=== PATIENT | male | born 1940 | race Caucasian/White ===

== ENCOUNTER 2021-02-07 10:34 | Inpatient (IN) | payer OTHER ==
[~2021-02-07] VITALS: Ht 182.9 cm; Wt 111.3 kg
[2021-02-07] MEDS ORDERED: METHADONE 5MG TA5 MG PO (11:31)
[2021-02-07] MEDS ORDERED: PROSCAR5 MG PO (11:32)
[2021-02-07] MEDS ORDERED: FLOMAX 0.4 MG0.4 MG PO (11:33)
[2021-02-07] MEDS ORDERED: OXYCODONE HCL10 MG PO (11:34)
[2021-02-07] MEDS ORDERED: ZOFRAN4 M1 SL (11:34)
[2021-02-07 12:36] LABS: BASOPHIL 1.1 % (0-2); EOSINOPHIL 3.4 % (0-7); HCT 37.4 % (42.0-52.0); HGB 12.4 g/dl (13.2-18.0); LYMPHOCYTE 23.4 % (15-48); MCHC 33.2 g/dL (32.0-36.0); MCV 93.5 fL (78.0-100.0); MONOCYTE 9.5 % (0-12); MPV 10.1 fL (6.0-9.5); NEUTROPHIL 62.1 % (41-80); NRBC 0; PLT 171 K/uL (150-400); RDW 13.5 % (11.5-14.0); WBC 5.6 K/uL (4.0-10.5)
[2021-02-07 12:51] LABS: ALBUMIN 2.8 g/dL (3.4-5.0); BILIRUBIN - TOTAL 0.7 mg/dL (0.2-1.0); BUN/CREAT RATIO (CALC) 7.1 RATIO; CREATININE 1.7 mg/dL (0.67-1.17); GLOBULIN (CALCULATION) 3.8 g/dL; POTASSIUM 3.9 mmol/L (3.5-5.1); TOTAL PROTEIN 6.6 g/dL (6.4-8.2)
[2021-02-07 16:42] LABS: BILIRUBIN 1+ mg/dL (NEGATIVE); BLOOD NEGATIVE Ery/uL (NEGATIVE); CLARITY CLEAR (CLEAR); COLOR YELLOW (YELLOW); GLUCOSE (U) NORMAL (NORMAL); LEUKOCYTES NEGATIVE Leu/uL (NEGATIVE); NITRITE NEGATIVE (NEGATIVE); PROTEIN 1+ mg/dL (NEGATIVE); SPECIFIC GRAVITY >=1.030 (1.001-1.030); UROBILINOGEN 0.2 mg/dL (0.2-1.0)
[2021-02-07 16:46] LABS: MUCOUS TRACE
[2021-02-07] MEDS ORDERED: SENNA8.6 MG PO (18:49)
[2021-02-07] MEDS ORDERED: PREVACID30 M1 PO (18:57)
[2021-02-07] MEDS ORDERED: CHLORTHALIDONE25 MG PO (18:59)
[2021-02-07] MEDS ORDERED: NARCAN4 MG INH (19:00)
[2021-02-08 06:01] LABS: BASOPHIL 1.3 % (0-2); EOSINOPHIL 4.1 % (0-7); HCT 37.7 % (42.0-52.0); HGB 12.5 g/dl (13.2-18.0); LYMPHOCYTE 22.9 % (15-48); MCH 31.1 pg (25.0-31.0); MCHC 33.2 g/dL (32.0-36.0); MCV 93.8 fL (78.0-100.0); MONOCYTE 12.6 % (0-12); MPV 10.7 fL (6.0-9.5); NEUTROPHIL 58.5 % (41-80); NRBC 0; PLT 177 K/uL (150-400); RBC 4.02 M/uL (4.70-6.00); RDW 13.3 % (11.5-14.0); WBC 5.3 K/uL (4.0-10.5)
[2021-02-08 06:24] LABS: ALBUMIN 2.5 g/dL (3.4-5.0); BILIRUBIN - TOTAL 0.7 mg/dL (0.2-1.0); CREATININE 1.71 mg/dL (0.67-1.17); GLOBULIN (CALCULATION) 2.9 g/dL; POTASSIUM 4.6 mmol/L (3.5-5.1); TOTAL PROTEIN 5.4 g/dL (6.4-8.2)
--- NOTE | 2021-02-08 14:15 | NUR ---
MET WITH DAUGHTERMINDY ([phone]) THIS DATE. SHE AND FAMILY WOULD LIKE TO MEET WITH HOSPICE FOR AN EDUCATIONAL MEETING. [facility]ED [facility] FOR [facility]. SHE CAN MEET WITH FAMILY THIS DATE BETWEEN 3:30-4:00 P.M. CONFIRMED WITH MINDY LEZAMA AND LEE THE MEETING FOR THIS DATE.
[2021-02-08 15:13] LABS: BILIRUBIN NEGATIVE (NEGATIVE); BLOOD 1+ Ery/uL (NEGATIVE); CLARITY CLEAR (CLEAR); COLOR YELLOW (YELLOW); GLUCOSE (U) NORMAL (NORMAL); LEUKOCYTES NEGATIVE Leu/uL (NEGATIVE); NITRITE NEGATIVE (NEGATIVE); PROTEIN 1+ mg/dL (NEGATIVE); SPECIFIC GRAVITY 1.025 (1.001-1.030)
[2021-02-09 04:23] LABS: EOSINOPHIL 4.2 % (0-7); HCT 40.8 % (42.0-52.0); HGB 13.5 g/dl (13.2-18.0); LYMPHOCYTE 15.4 % (15-48); MCH 31.1 pg (25.0-31.0); MCHC 33.1 g/dL (32.0-36.0); MONOCYTE 11.6 % (0-12); MPV 10.4 fL (6.0-9.5); NEUTROPHIL 67.4 % (41-80); NRBC 0; PLT 174 K/uL (150-400); RBC 4.34 M/uL (4.70-6.00); RDW 13.2 % (11.5-14.0); WBC 6.7 K/uL (4.0-10.5)
[2021-02-09 04:40] LABS: ALBUMIN 2.3 g/dL (3.4-5.0); BILIRUBIN - TOTAL 0.8 mg/dL (0.2-1.0); BUN/CREAT RATIO (CALC) 7.5 RATIO; CREATININE 1.87 mg/dL (0.67-1.17); GLOBULIN (CALCULATION) 3.6 g/dL; POTASSIUM 4.5 mmol/L (3.5-5.1); TOTAL PROTEIN 5.9 g/dL (6.4-8.2)
--- NOTE | 2021-02-09 13:19 | NUR ---
MET WITH PT. DAUGHTER, ERIN. SHE RESIDES AT [address] [place] [address]. [phone]. PT. WILL BE GOING TO DAUGHTERS HOME WITH HOSPICE ON . EXPLAINED THE ABN FORM TO ERIN REGARDING THE AMBULANCE TRANSPORTATION FOR HER FATHER. EXPLAINED THAT SHE MAY BE REQUIRED TO SIGN AN ABN FOR TRANSPORTATION WELL. ERIN ACKNOWLEDGED UNDERSTANDING AND WAS IN AGREEMENT THE AMBULANCE TO TRANSPORT HER FATHER.
--- NOTE | 2021-02-09 13:22 | NUR ---
PT. DAUGHTER REQUESTED TO SEE THE PHYSICAL THERAPY ASSISTANT INSTRUCTOR. TC TO [facility]. HE ADVISED THAT HE WOULD SEE THE PT AND FAMILY.
--- NOTE | 2021-02-09 13:29 | NUR ---
SENT O2 ORDER TO [facility] FOR [facility].
[2021-02-10 06:16] LABS: BASOPHIL 0.8 % (0-2); EOSINOPHIL 4.9 % (0-7); HGB 11.8 g/dl (13.2-18.0); LYMPHOCYTE 15.8 % (15-48); MCHC 32.8 g/dL (32.0-36.0); MCV 94.5 fL (78.0-100.0); MONOCYTE 7.9 % (0-12); MPV 10.4 fL (6.0-9.5); NRBC 0; PLT 178 K/uL (150-400); RBC 3.81 M/uL (4.70-6.00); RDW 13.5 % (11.5-14.0); WBC 5.3 K/uL (4.0-10.5)
[2021-02-10 06:46] LABS: BUN/CREAT RATIO (CALC) 8.7 RATIO; CREATININE 1.84 mg/dL (0.67-1.17); POTASSIUM 4.6 mmol/L (3.5-5.1)
[2021-02-10] MEDS ORDERED: AZITHROMYCIN250 MG PO (12:37)
== END 2021-02-10 14:29 | disposition hospice, home (50) | DRG 193 ==
LOC: FER 10:34 → FMS 16:35
PROVIDERS: Emergency Medicine; Internal Medicine; Nurse Practitioner; ADMIT Internal Medicine
DX: J18.9 Pneumonia, unspecified organism (principal); J96.01 Acute respiratory failure with hypoxia; G93.41 Metabolic encephalopathy; C79.01 Secondary malignant neoplasm of right kidney and renal pelvis; C79.51 Secondary malignant neoplasm of bone; E87.1 Hypo-osmolality and hyponatremia; N17.9 Acute kidney failure, unspecified; Z20.822 Contact with and (suspected) exposure to COVID-19; I12.9 Hypertensive chronic kidney disease with stage 1 through stage 4 chronic kidney disease, or unspecified chronic kidney disease; N18.30 Chronic kidney disease, stage 3 unspecified; N40.0 Benign prostatic hyperplasia without lower urinary tract symptoms; K59.09 Other constipation; G89.3 Neoplasm related pain (acute) (chronic); N40.1 Benign prostatic hyperplasia with lower urinary tract symptoms; R33.8 Other retention of urine; Z85.528 Personal history of other malignant neoplasm of kidney; Z90.5 Acquired absence of kidney; Z92.25 Personal history of immunosuppression therapy
CPT/HCPCS: 36415; 36600; 70551; 71045; 71250; 72141; 80048; 80053; 81001; 81003; 82803; 83605; 83874; 83880; 84145; 85025; 87040; 93005; 94667; 94668; J0456; J0696; J1650; J2270; J7030; J7050; U0002